=== PATIENT | female | born 1955 | race Caucasian/White ===

== ENCOUNTER 2022-10-24 09:15 | Outpatient (RCR) | payer OTHER, SELFPAY | END 2023-01-13 15:32 | disposition home or self-care (01) | PROVIDERS: PCP Family Medicine; Visit Provider Dentist General Practice | DX: M26.69 Other specified disorders of temporomandibular joint (principal); Z51.89 Encounter for other specified aftercare | CPT/HCPCS: 97140; 97161 ==

== ENCOUNTER 2022-11-25 11:32 | Outpatient (CLI) | payer OTHER, SELFPAY | END 2022-11-25 11:33 | disposition home or self-care (01) | PROVIDERS: PCP Family Medicine; Visit Provider Family Medicine | DX: Z00.00 Encounter for general adult medical examination without abnormal findings (principal); E55.9 Vitamin D deficiency, unspecified; E66.9 Obesity, unspecified; E53.8 Deficiency of other specified B group vitamins; K76.0 Fatty (change of) liver, not elsewhere classified; G25.81 Restless legs syndrome; Z13.6 Encounter for screening for cardiovascular disorders | CPT/HCPCS: 80053; 80061; 82306; 82607; 82728 ==

== ENCOUNTER 2022-12-05 08:14 | Outpatient (CLI) | payer OTHER, SELFPAY ==
--- NOTE | 2022-12-05 06:45 | W.ANESCHARGE ---
Anesthesia Charges Start Date/Time Anesthesia Start Date: 12/05/22 Anesthesia Start Time: 08:50 Stop Date/Time Anesthesia Stop Date: 12/05/22 Anesthesia Stop Time: 09:15
--- NOTE | 2022-12-05 09:20 | W.ANESCHARGE ---
Anesthesia Charges Start Date/Time Anesthesia Start Date: 12/05/22 Anesthesia Start Time: 08:50 Stop Date/Time Anesthesia Stop Date: 12/05/22 Anesthesia Stop Time: 09:15
== END 2022-12-05 08:15 | disposition home or self-care (01) ==
LOC: OP CLINIC 08:16
PROVIDERS: PCP Family Medicine; Visit Provider Internal Medicine
DX: Z86.010 Personal history of colon polyps (principal); K63.5 Polyp of colon; K57.30 Diverticulosis of large intestine without perforation or abscess without bleeding; K64.8 Other hemorrhoids
CPT/HCPCS: 45380; 811; 88305; J2405; J2704

== ENCOUNTER 2023-02-12 13:10 | Outpatient (CLI) | payer OTHER, SELFPAY ==
--- NOTE | 2023-02-12 13:20 | CRLHL7_ITS ---
For Patients: As a result of the Century Cures Act, medical imaging exams and procedure reports are released immediately into your electronic medical record. You may view this report before your referring provider. If you have questions, please contact your health care provider. BILATERAL SCREENING MAMMOGRAM WITH COMPUTER-AIDED DETECTION AND TOMOSYNTHESIS TECHNIQUE: CC and MLO views were obtained. These mammographic images have been obtained using full-field digital technique. These mammographic images were interpreted with the benefit of computer-aided detection. Breast Tomosynthesis was used in this interpretation. COMPARISON FILM: Baseline. FINDINGS: There are scattered areas of fibroglandular density IMPRESSION: There is no radiographic evidence for malignancy. ASSESSMENT: BI-RADS Category 1: Negative RECOMMENDATION: Routine screening mammogram in 1 year. A lay language report of this examination will be provided to the patient. Jose Rouse M.D. Diagnostic Radiologist [email or web address] [email or web address]/venu Transcribed: 5:55 p.[email or web address] lea/Dictated by: Jose Rouse MD @ 02/13/2023 12:51:00 PM (Electronically Signed)
--- NOTE | 2023-02-12 14:00 | CRLHL7_ITS ---
For Patients: As a result of the Century Cures Act, medical imaging exams and procedure reports are released immediately into your electronic medical record. You may view this report before your referring provider. If you have questions, please contact your health care provider. DXA BONE MINERAL DENSITY STUDY Reason for exam: Postmenopausal status. Current height (in): 67. Weight (lb): 210. Menopause age: 52. Ethnicity: White. 1. Have you had a previous hip or vertebral fracture? No. 2. Have you had any fractures during your adult life which did not result from significant trauma (e.g., auto accident)? No. 3. Did either of your parents have a hip fracture? No. 4. Do you smoke? No. 5. Have you ever taken Glucocorticoids? No. 6. Do you have rheumatoid arthritis? Yes. 7. Do you have secondary osteoporosis? No. 8. Do you drink 3 or more alcoholic drinks per day? No. 9. Are you being treated for osteoporosis? No. 10. Have you ever taken any of the following medications: Actonel, Evista, Fosamax, Miacalcin, Reclast, Boniva, Forteo, HRT (i.e., estrogen/hormone therapy), Protelos, Prolia, Vitamin D, Calcium, other ??? please specify. ANSWER: Yes, Vitamin D and calcium. 11. Do you have any of the following medical conditions: Anorexia or bulimia, asthma or emphysema, end stage renal disease, hyperparathyroidism, any seizure disorders, cancer, inflammatory bowel diseases, hysterectomy, other ??? please specify. ANSWER: No. 12. What was your maximum height (inches)? 67. 13. Do you perform weight bearing exercise regularly? No. 14. Do you regularly consume dairy products? Yes. 15. Do you drink caffeinated beverages? Yes. If female: 16. At what age did your period start? 15. 17. Are you premenopausal? No. 18. How many full-term pregnancies have you had? 0. 19. Have you ever missed your period for more than 6 months in a row (not including or menopause)? No. TECHNIQUE: Bone mineral density study was performed using the Quat-E. FINDINGS: The results of the study expressed as bone mineral density (BMD) are as follows: Lumbar spine L1 to L4: BMD: 1.075 g/cm2. T-score: 0.3. Z-score: 2.0 Neck Left: BMD: 0.881 g/cm2. T-score: 0.3. Z-score: 1.8 Right: BMD: 0.930 g/cm2. T-score: 0.7. Z-score: 2.3 Total Left: BMD: 1.035 g/cm2. T-score: 0.8. Z-score: 2.0 Right: BMD: 1.073 g/cm2. T-score: 1.1. Z-score: 2.3 IMPRESSION: Normal bone density. Jose Rouse M.D. Diagnostic Radiologist [email or web address] LINDSAY/venu lea/Dictated by: Jose Rouse MD @ 02/13/2023 12:23:00 PM (Electronically Signed)
== END 2023-02-12 13:11 | disposition home or self-care (01) ==
LOC: MAMMO 13:11
PROVIDERS: PCP Family Medicine; Visit Provider Family Medicine
DX: Z12.31 Encounter for screening mammogram for malignant neoplasm of breast (principal); Z78.0 Asymptomatic menopausal state
CPT/HCPCS: 77063; 77067; 77080

== ENCOUNTER 2024-01-13 08:28 | Outpatient (CLI) | payer OTHER, SELFPAY ==
--- OUTSIDE RECORDS SUMMARY | 2024-01-15 15:37 | XMS_ITS | Clinical Summary ---
Author Organization [facility] Address [place], [place] [address] Care Team Providers Care Director Of Special Events Name Role Phone Pcp, No Primary Care Provider Unavailabl e Allergies Active Allergy Reactions Criticality Noted Date Comments Chlorpheniramine-Phenylp ropan *Unknown - Childhood Rxn 11/12/2023 Sulfa (Sulfonamide Antibiotics) *Unknown - Follow up needed 11/12/2023 Family Hx Medications Medication Sig Dispensed Refills Start Date End Date Status doxycycline 100 mg capsule Take 100 mg by mouth two times daily. Total of 14 days. Started 10/19/23 10/19/2023 Active medication order composerIndications :Diseases of lips Multivitamin D3 200mg daily B12 1000mg daily OTC Iron Supplement daily 11/12/2023 Active ibuprofen (ADVIL; MOTRIN) 800 mg tablet 11/12/2023 Active Encounters Date Type Department Care Team Description 11/12/2023 10:00 AM CDT Office Visit [address] [address] Mayra Kearns MD Consult (Lips ) 11/12/2023 Travel from Last 3 Months Social History Tobacco Use Types Packs/Day Years Used Date Smoking Tobacco: Never Assessed Social Connections Answer Date Recorded Frequency of Communication with Friends and Fami ly Not on file 11/12/2023 Sex and Gender Information Value Date Recorded Sex Assigned at Not on file Gender Identity Not on file Sexual Orientation Not on file Last Filed Vital Signs Vital Sign Reading Time Taken Comments Blood Pressure 110/68 11/12/2023 10:10 AM CDT Pulse 72 11/12/2023 10:10 AM CDT Temperature 36.4 ??C (97.6 ??F) 11/12/2023 1 0:10 AM CDT Respiratory Rate - - Oxygen Saturation - - Inhaled Oxygen Concentration - - Weight 97.4 kg (214 lb 12.8 oz) 024 10:10 AM CDT Shoes Height - - Body Mass Index - - Plan of Treatment Health Maintenance Due Date Last Done Comments Tdap 1968 Depression screening for age 12+ 1969 BMI (ht and wt on same day) for age 18+ 09/30/1975 Hepatitis C screening for age 18-79 09/30/1975 Tetanus booster 1977 Colonoscopy through age 75 2002 Lipids for age 45-75 2002 Mammogram for age 45-75 2002 Zoster (shingles) series for age 50+ (1 of 2) 09/30/19 08 DEXA/DXA scan for age 65+ 2022 Medicare Wellness for age 65+ 2022 Pneumococcal series for age 65+ (1 of 1 - PCV) 023 COVID-19 vaccine series (2 - season) 4 03/20/2023 Influenza for age 65+ 01/17/2024 Care Teams Director Of Special Events Relationship Specialty Start Date End Date Pcp, No . PCP - General 10/19/23
== END 2024-01-13 08:29 | disposition home or self-care (01) ==
LOC: NFLDREF 01-15 15:36
PROVIDERS: PCP Family Medicine; Referring Provider Family Medicine; Visit Provider Family Medicine
DX: E78.5 Hyperlipidemia, unspecified (principal); E55.9 Vitamin D deficiency, unspecified; G25.81 Restless legs syndrome; K76.0 Fatty (change of) liver, not elsewhere classified
CPT/HCPCS: 80053; 80061; 82306; 82728

== ENCOUNTER 2024-02-05 14:26 | Outpatient (CLI) | payer OTHER, SELFPAY ==
--- OUTSIDE RECORDS SUMMARY | 2024-02-05 14:29 | XMS_ITS | Clinical Summary ---
Author Organization [facility] Address [place], [place] [address] Care Team Providers Care Irrigation Tax Assessor Collector Name Role Phone Pcp, No Primary Care [...] Description 11/12/2023 10:00 AM CDT Office Visit [address] [address] Mayra Kearns MD Consult (Lips ) 11/12/2023 [...] Influenza for age 65+ 01/17/2024 Care Teams Irrigation Tax Assessor Collector Relationship Specialty Start Date End Date Pcp, No . PCP - General 10/19/23
--- NOTE | 2024-02-05 15:00 | CRLHL7_ITS ---
For Patients: As a result of the Century Cures Act, medical imaging exams and procedure reports are released immediately into your electronic medical record. You may view this report before your referring provider. If you have questions, please contact your health care provider. INDICATION: Abdominal pain. TECHNIQUE: CT abdomen and pelvis acquired with 103 cc of Isovue 370 IV contrast. COMPARISON: None. FINDINGS: Lower chest: Unremarkable. Liver: Unremarkable. Spleen: Unremarkable. Pancreas: Unremarkable. Gallbladder and bile ducts: Cholelithiasis. Gallbladder is otherwise unremarkable. No biliary ductal dilatation. Kidneys: Unremarkable. Adrenal glands: A 1.5 cm right adrenal nodule does not meet criteria for adenoma based on this exam. Left adrenal is unremarkable. GI tract: Colonic diverticulosis with circumferential thickening and pericolonic stranding of the sigmoid colon in the pelvis. No evidence of hugh perforation or discrete pericolonic fluid collection. No bowel obstruction. There is thickening of the appendix, with no definite periappendiceal stranding, of uncertain significance. Lymph nodes: No pathologic lymphadenopathy. Vascular structures: Unremarkable. Pelvic Organs: Unremarkable. Bones: No acute or suspicious osseous abnormality. IMPRESSION: 1. Acute sigmoid diverticulitis. No complicating features evident. 2. Thickening of the appendix, of uncertain significance. No definite periappendiceal stranding. Findings may represent normal variation, however, attention to this on clinical follow-up is recommended. 3. Cholelithiasis. 4. Right adrenal nodule measuring 1.5 cm does not meet criteria for adenoma based on this exam. Follow-up nonemergent CT adrenal protocol of the abdomen is recommended to confirm the suspected diagnosis of adenoma. Radiologist participation at the time of exam could possibly prevent the need for IV contrast administration for this exam. Dictated by Rios Rodarte MD @ 02/05/2024 3:38:54 PM Please note that all CT scans at this facility use dose modulation, iterative reconstruction, and/or weight-based dosing when appropriate to reduce radiation dose to as low as reasonably achievable. Dictated by: Rios Rodarte MD @ 02/05/2024 15:39:36 (Electronically Signed)
== END 2024-02-05 14:27 | disposition home or self-care (01) ==
PROVIDERS: PCP Family Medicine; Visit Provider Nurse Practitioner Family
DX: R10.9 Unspecified abdominal pain (principal); K57.32 Diverticulitis of large intestine without perforation or abscess without bleeding; K80.20 Calculus of gallbladder without cholecystitis without obstruction; E27.9 Disorder of adrenal gland, unspecified
CPT/HCPCS: 74177; 81001; 85025; 87086; Q9967

== ENCOUNTER 2024-03-28 09:34 | Outpatient (CLI) | payer OTHER, SELFPAY ==
--- OUTSIDE RECORDS SUMMARY | 2024-03-28 09:35 | XMS_ITS | Clinical Summary ---
Author Organization [facility] Address [place], [place] [address] Care Team Providers Care Stevedoring Supervisor Name Role Phone Pcp, No Primary Care [...] (ADVIL; MOTRIN) 800 mg tablet 11/12/2023 Active Social History Tobacco Use Types Packs/Day Years [...] Influenza for age 65+ 01/17/2024 Care Teams Stevedoring Supervisor Relationship Specialty Start Date End Date Pcp, No . PCP - General 10/19/23
--- NOTE | 2024-03-28 10:00 | CRLHL7_ITS ---
For Patients: As a result of the Century Cures Act, medical imaging exams and procedure reports are released immediately into your electronic medical record. You may view this report before your referring provider. If you have questions, please contact your health care provider. INDICATION: Follow up right nodule TECHNIQUE: Volumetric helical scanning of the abdomen was performed without contrast. Coronal and sagittal reconstructions were obtained. COMPARISON: Abdomen/pelvis CT of 02/05/2024 FINDINGS: The 1.5 cm right adrenal nodule has attenuation of -2 HU, consistent with an adenoma. Left Stones are again demonstrated the liver, bile ducts, spleen and pancreas are negative. The kidneys are within normal limits. The visualized bowel colonic versus there is no lymphadenopathy or free fluid. The lung bases are essentially clear, and heart size is normal. IMPRESSION: 1. 1.5 cm right adrenal adenoma. 2. Cholelithiasis. 3. Colonic diverticulosis. Please note that all CT scans at this facility use dose modulation, iterative reconstruction, and/or weight-based dosing when appropriate to reduce radiation dose to as low as reasonably achievable. Dictated by Arnaud Corey MD @ 03/29/2024 5:11:56 AM (Electronically Signed)
== END 2024-03-28 09:35 | disposition home or self-care (01) ==
LOC: CT 09:34
PROVIDERS: PCP Family Medicine; Visit Provider Family Medicine
DX: E27.9 Disorder of adrenal gland, unspecified (principal); K80.20 Calculus of gallbladder without cholecystitis without obstruction; K57.30 Diverticulosis of large intestine without perforation or abscess without bleeding
CPT/HCPCS: 74150

== ENCOUNTER 2024-04-19 15:29 | Outpatient (CLI) | payer OTHER, SELFPAY ==
--- OUTSIDE RECORDS SUMMARY | 2024-04-19 15:32 | XMS_ITS | Clinical Summary ---
Author Organization [facility] Address [place], [place] [address] Care Team Providers Care Biblical Languages Professor Name Role Phone Pcp, No Primary Care [...] 74 11/12/2023 10:10 AM CDT Temperature 36.4 C (97.6 F) 11/12/2023 10:10 AM CDT Respiratory Rate - - Oxygen [...] Influenza for age 65+ 01/17/2024 Care Teams Biblical Languages Professor Relationship Specialty Start Date End Date Pcp, No . PCP - General 10/19/23
--- NOTE | 2024-04-19 15:40 | CRLHL7_ITS ---
For Patients: As a result of the Century Cures Act, medical imaging exams and procedure reports are released immediately into your electronic medical record. You may view this report before your referring provider. If you have questions, please contact your health care provider. BILATERAL SCREENING MAMMOGRAM WITH COMPUTER-AIDED DETECTION AND TOMOSYNTHESIS TECHNIQUE: CC and MLO views were obtained. These mammographic images have been obtained using full-field digital technique. These mammographic images were interpreted with the benefit of computer-aided detection. Breast Tomosynthesis was used in this interpretation. COMPARISON FILM: 02/12/23. FINDINGS: There are scattered areas of fibroglandular density. IMPRESSION: There is no radiographic evidence for malignancy. ASSESSMENT: BI-RADS Category 1: Negative RECOMMENDATION: Routine screening mammogram in 1 year. A lay language report of this examination will be provided to the patient. Jose Rouse M.D. Diagnostic Radiologist [email or web address] SP/Dictated by: Jose Rouse MD @ 04/20/2024 12:17:00 PM (Electronically Signed)
== END 2024-04-19 15:30 | disposition home or self-care (01) ==
LOC: MAMMO 15:30
PROVIDERS: PCP Family Medicine; Visit Provider Family Medicine
DX: Z12.31 Encounter for screening mammogram for malignant neoplasm of breast (principal)
CPT/HCPCS: 77063; 77067